=== PATIENT | female | born 1960 | race Caucasian/White ===

== ENCOUNTER 2023-12-19 09:56 | Inpatient (IN) | payer OTHER ==
[~2023-12-19] VITALS: Ht 161.3 cm; Wt 65.9 kg
[2023-12-19 11:10] LABS: BASOPHILS # (AUTO) 0.1 X10'3 (0-0.2); BASOPHILS % (AUTO) 0.9 % (0-1); EOSINOPHILS # (AUTO) 0.1 X10'3 (0-0.9); EOSINOPHILS % (AUTO) 1.1 % (0-6); HEMATOCRIT 33.3 % (35.0-45.0); HEMOGLOBIN 11.4 g/dl (12.0-16.0); LYMPHOCYTES # (AUTO) 2.5 X10'3 (1.1-4.8); LYMPHOCYTES % (AUTO) 38.7 % (21-51); MEAN CORPUSCULAR HEMOGLOBIN 31.2 PG (27.0-31.0); MEAN CORPUSCULAR HGB CONC 34.3 g/dL (33.0-36.5); MEAN CORPUSCULAR VOLUME 91.2 FL (78-98); MEAN PLATELET VOLUME 7.2 FL (7.4-10.4); MONOCYTES # (AUTO) 0.6 X10'3 (0-0.9); MONOCYTES % (AUTO) 9.1 % (2-12); NEUTROPHILS # (AUTO) 3.2 X10'3 (1.8-7.7); NEUTROPHILS % (AUTO) 50.2 % (42-75); PLATELET COUNT 371 X10'3 (140-440); RED BLOOD COUNT 3.65 X10'6 (4.20-5.60); RED CELL DISTRIBUTION WIDTH 12.9 % (11.5-14.5); WHITE BLOOD COUNT 6.4 X10'3 (4.5-11.0)
[2023-12-19 11:27] LABS: ALBUMIN 3.5 G/DL (3.4-5.0); ANION GAP 10 (8-16); BLOOD UREA NITROGEN 20 MG/DL (7-18); BUN/CREATININE RATIO 29.4 (10.0-20.0); CALCIUM 8.5 MG/DL (8.5-10.1); CHLORIDE 108 MMOL/L (99-107); CREATININE 0.68 MG/DL (0.40-0.90); GLUCOSE 124 MG/DL (70-104); POTASSIUM 3.6 MMOL/L (3.5-5.1); SODIUM 142 MMOL/L (135-145); eCRCL 73 ML/MIN; eGFR 88 ML/MIN
[2023-12-19] MEDS: aspirin 81mg tab.chew PO ONE (12:32)
[2023-12-19 12:51] LABS: THYROID STIMULATING HORMONE 0.94 ulU/ml (0.34-4.50)
[2023-12-19] MEDS ORDERED: magnesium hydroxide 30ml (MOM) UD suspension PO PRN (13:25)
[2023-12-19] MEDS ORDERED: magnesium Cl slow-release 64mg tablet PO PRN (13:25)
[2023-12-19] MEDS ORDERED: potassium Cl 20 mEq SR tablet PO PRN ×2 (13:25)
[2023-12-19] MEDS ORDERED: potassium Cl 40MEQ/1/2NS 520ml 520 ML IV PRN (13:25)
[2023-12-19] MEDS ORDERED: magnesium 4gm in 100ml NS 100 ML IV PRN (13:25)
[2023-12-19] MEDS ORDERED: mag hydrox/Alum hydrox/simeth 30ml oral suspension PO PRN (13:25)
[2023-12-19] MEDS ORDERED: ondansetron/PF 4mg/2ml inj IV PRN (13:25)
[2023-12-19] MEDS ORDERED: acetaminophen 325mg tablet PO PRN (13:25)
[2023-12-19] MEDS ORDERED: magnesium 2GM in 50ml NS 50 ML IV PRN (13:25)
[2023-12-19 14:18] LABS: BILIRUBIN,URINE NEGATIVE (Neg); CLARITY,URINE CLEAR (Clear); COLOR,URINE YELLOW (Yellow); GLUCOSE, URINE NEGATIVE (Neg); KETONES,URINE NEGATIVE (Neg); LEUKOCYTE ESTERASE ,URINE NEGATIVE (Neg); NITRITES, URINE NEGATIVE (Neg); OCCULT BLOOD,URINE NEGATIVE (Neg); PH,URINE 5.5 (4.8-8.0); PROTEIN,URINE NEGATIVE (Neg); UROBILINOGEN,URINE 0.2 E.U/dL (0.2-1.0)
[2023-12-19 14:34] LABS: UA COLLECTION TYPE NON-SPECIFIED
[2023-12-19] MEDS ORDERED: NO HOME MEDS (14:44)
[2023-12-19 17:09] VITALS: BP 117/64; PULSE 56; RESP 14; TEMP 98.1; O2SAT 98
[2023-12-19 18:00] VITALS: BP 101/62; PULSE 57; RESP 14; TEMP 98.2; O2SAT 99
[2023-12-19] MEDS: K and/or MAG REPLACEMENT MC SCH (19:36)
[2023-12-19 20:00] VITALS: RESP 16; O2SAT 98
[2023-12-19 22:00] VITALS: BP 124/51; PULSE 59; RESP 16; TEMP 97.3; O2SAT 99
[2023-12-19 22:02] VITALS: BP_SYST 110; BP_SYST 112; BP_SYST 124; BP_DIAS 51; BP_DIAS 61; BP_DIAS 62; PULSE 59; PULSE 65; PULSE 67
[2023-12-20] MEDS: pneumococcal 23-VAL P-sac vacc 25 mcg/0.5ml vial IMVAC ONE (00:50)
[2023-12-20 02:00] VITALS: BP 108/51; PULSE 51; RESP 16; TEMP 97.4; O2SAT 98
[2023-12-20 07:00] VITALS: BP 113/59; PULSE 53; RESP 16; TEMP 97.7; O2SAT 99
[2023-12-20 07:50] LABS: BASOPHILS # (AUTO) 0.1 X10'3 (0-0.2); BASOPHILS % (AUTO) 0.8 % (0-1); EOSINOPHILS # (AUTO) 0.1 X10'3 (0-0.9); EOSINOPHILS % (AUTO) 1.4 % (0-6); HEMATOCRIT 35.1 % (35.0-45.0); LYMPHOCYTES # (AUTO) 1.6 X10'3 (1.1-4.8); LYMPHOCYTES % (AUTO) 25.4 % (21-51); MEAN CORPUSCULAR HEMOGLOBIN 31.1 PG (27.0-31.0); MEAN CORPUSCULAR HGB CONC 34.1 g/dL (33.0-36.5); MEAN CORPUSCULAR VOLUME 91.2 FL (78-98); MEAN PLATELET VOLUME 6.8 FL (7.4-10.4); MONOCYTES # (AUTO) 0.4 X10'3 (0-0.9); MONOCYTES % (AUTO) 6.7 % (2-12); NEUTROPHILS # (AUTO) 4.1 X10'3 (1.8-7.7); NEUTROPHILS % (AUTO) 65.7 % (42-75); PLATELET COUNT 354 X10'3 (140-440); RED BLOOD COUNT 3.86 X10'6 (4.20-5.60); RED CELL DISTRIBUTION WIDTH 12.8 % (11.5-14.5); WHITE BLOOD COUNT 6.3 X10'3 (4.5-11.0)
[2023-12-20 08:10] LABS: ALBUMIN 3.4 G/DL (3.4-5.0); ANION GAP 10 (8-16); BLOOD UREA NITROGEN 16 MG/DL (7-18); BUN/CREATININE RATIO 28.1 (10.0-20.0); CALCIUM 8.8 MG/DL (8.5-10.1); CHLORIDE 109 MMOL/L (99-107); CHOL/HDL RATIO 5.1 (0.00-4.99); CHOLESTEROL 228 MG/DL (0-200); CREATININE 0.57 MG/DL (0.40-0.90); GLUCOSE 105 MG/DL (70-104); HDL CHOLESTEROL 45 MG/DL (35-60); LDL CHOLESTEROL 154 MG/DL (50-100); MAGNESIUM 2.7 MG/DL (1.5-2.4); POTASSIUM 4.3 MMOL/L (3.5-5.1); SODIUM 143 MMOL/L (135-145); TOTAL CARBON DIOXIDE 23.8 MMOL/L (24-32); TRIGLYCERIDES 97 MG/DL (20-135); eCRCL 88 ML/MIN; eGFR > 90 ML/MIN
[2023-12-20 11:42] VITALS: BP 119/40; PULSE 55; RESP 18; TEMP 98.7; O2SAT 98
[2023-12-20] MEDS ORDERED: nitroGLYCERIN 0.4mg SUBLingual tab SL PRN (13:45)
[2023-12-20] MEDS ORDERED: aminophylline 250mg/10ml inj. IV PRN (13:45)
[2023-12-20] MEDS ORDERED: metoprolol tartrate 1mg/ml inj IV PRN (13:45)
[2023-12-20 20:00] VITALS: RESP 18; O2SAT 99
[2023-12-20 21:24] VITALS: BP 109/46; PULSE 57; RESP 18; TEMP 97.1; O2SAT 99
[2023-12-21] VITALS (16 sets, daily range): BP systolic 110–131; BP diastolic 37–70; PULSE 51–97; RESP 12–18; TEMP 97.8–98.6; O2SAT 96–100
[2023-12-21 06:38] LABS: BASOPHILS # (AUTO) 0.1 X10'3 (0-0.2); BASOPHILS % (AUTO) 0.9 % (0-1); EOSINOPHILS # (AUTO) 0.1 X10'3 (0-0.9); EOSINOPHILS % (AUTO) 1.3 % (0-6); HEMATOCRIT 34.5 % (35.0-45.0); HEMOGLOBIN 11.9 g/dl (12.0-16.0); LYMPHOCYTES # (AUTO) 1.9 X10'3 (1.1-4.8); MEAN CORPUSCULAR HEMOGLOBIN 31.4 PG (27.0-31.0); MEAN CORPUSCULAR HGB CONC 34.6 g/dL (33.0-36.5); MEAN CORPUSCULAR VOLUME 90.9 FL (78-98); MEAN PLATELET VOLUME 6.5 FL (7.4-10.4); MONOCYTES # (AUTO) 0.5 X10'3 (0-0.9); MONOCYTES % (AUTO) 8.3 % (2-12); NEUTROPHILS # (AUTO) 3.3 X10'3 (1.8-7.7); NEUTROPHILS % (AUTO) 56.5 % (42-75); PLATELET COUNT 341 X10'3 (140-440); RED CELL DISTRIBUTION WIDTH 12.8 % (11.5-14.5); WHITE BLOOD COUNT 5.9 X10'3 (4.5-11.0)
[2023-12-21 06:54] LABS: ALBUMIN 3.1 G/DL (3.4-5.0); ANION GAP 9 (8-16); BLOOD UREA NITROGEN 24 MG/DL (7-18); BUN/CREATININE RATIO 41.4 (10.0-20.0); CALCIUM 8.5 MG/DL (8.5-10.1); CHLORIDE 108 MMOL/L (99-107); CREATININE 0.58 MG/DL (0.40-0.90); GLUCOSE 103 MG/DL (70-104); POTASSIUM 4.2 MMOL/L (3.5-5.1); SODIUM 141 MMOL/L (135-145); eCRCL 86 ML/MIN; eGFR > 90 ML/MIN
[2023-12-21] MEDS: regadenoson 0.4mg/5ml syringe IV PRN (11:47)
[2023-12-21] MEDS ORDERED: iohexol 300mg/ml 100ml inj. ONE (16:39)
[2023-12-21] MEDS ORDERED: ALBU18HF2 INH (18:31)
[2023-12-21] MEDS ORDERED: DOXY200T8 PO (18:33)
[2023-12-21] MEDS ORDERED: BUDE90AE INH (18:34)
== END 2023-12-21 20:03 | disposition home or self-care (01) | DRG 312 ==
LOC: ER 09:57 → ED HOLD 11:23 → UNDOADMIN 11:23 → ED HOLD 12:34 → EDBEDREQ 14:19 → PCU 3S 15:04 → ED HOLD 15:04 → UNDODISIN 12-21 20:03
PROVIDERS: ADMIT Internal Medicine; ATTEND Internal Medicine
DX: R55 Syncope and collapse (principal); I20.0 Unstable angina; R06.02 Shortness of breath; R42 Dizziness and giddiness; R07.89 Other chest pain; Z87.891 Personal history of nicotine dependence; Z88.2 Allergy status to sulfonamides
CPT/HCPCS: 36415; 71045; 71260; 78452; 80048; 80061; 81003; 83036; 83735; 84443; 84484; 85025; 93005; 93017; 93306; 99285; A9500; G0378; J2785; J3490; Q9967